=== PATIENT | female | born 1975 | race American Indian/Alaskan Native ===

== ENCOUNTER 2018-03-22 07:48 | Day surgery (SDC) | payer OTHER ==
[~2018-03-22] VITALS: Ht 154.9 cm; Wt 86.4 kg
[~2018-03-22 07:48] MED LIST: ALBU90OI61 INH; ASPI81CH PO; Advair Hfa 230-12 GM INH; Aldactone25 MG PO; Amlodipine Bes2.5 MG PO; Bactrim Ds Tab1 EACH PO; CEPH500 PO; Omeprazole20 M1 PO; SILD25T PO
== END 2018-03-22 14:20 | disposition home or self-care (01) ==
LOC: MHTC 07:48
DX: I27.20 Pulmonary hypertension, unspecified (principal); R07.9 Chest pain, unspecified; J45.909 Unspecified asthma, uncomplicated; Z87.891 Personal history of nicotine dependence; F12.90 Cannabis use, unspecified, uncomplicated; E66.9 Obesity, unspecified; I11.0 Hypertensive heart disease with heart failure; I50.810 Right heart failure, unspecified
CPT/HCPCS: 93456; 99152; C1769; C1894; J1644; J2250; J3010; J3480; J7030; Q9967

== ENCOUNTER 2019-11-06 19:44 | Observation (INO) | payer OTHER ==
[~2019-11-06] VITALS: Ht 154.9 cm; Wt 78.2 kg
[2019-11-06 20:55] LABS: BASOPHILS ABSOLUTE AUTO 0.07 K/mm3 (0.00-0.23); BASOPHILS PERCENT AUTO 1 % (0-2); EOSINOPHILS ABSOLUTE AUTO 0.63 K/mm3 (0.00-0.68); EOSINOPHILS PERCENT AUTO 10 % (0-6); Hematocrit 37.3 % (33.0-51.0); Hemoglobin 10.6 g/dL (11.5-16.0); IMMATURE GRAN ABSOLUTE AUTO 0.01 K/mm3 (0.00-0.10); IMMATURE GRAN PERCENT AUTO 0 % (0-1); LYMPHOCYTES ABSOLUTE AUTO 1.75 K/mm3 (0.84-5.20); LYMPHOCYTES PERCENT AUTO 28 % (21-46); MONOCYTES PERCENT AUTO 8 % (4-13); Mean Corpuscular HGB 19.1 pg (26.0-34.0); Mean Corpuscular HGB Conc 28.4 g/dL (31.5-36.5); Mean Corpuscular Volume 67 fL (80-100); Mean Platelet Volume 10.3 fL (9.1-12.4); NEUTROPHILS PERCENT AUTO 53 % (41-73); Platelet Count 285 K/mm3 (150-400); RDW Coefficient Variation 20.6 % (11.7-14.2); RDW Standard Deviation 47.3 fL (35.1-46.3); Red Blood Cell Count 5.55 M/mm3 (3.80-5.20); White Blood Cell Count 6.36 K/mm3 (4.00-11.30)
[2019-11-06 21:13] LABS: Base Excess Venous -4.5 mmol/L; PCO2 Venous 40.4 mmHg (38-42); PO2 Venous 143 mmHg (38-42); pH Blood Venous 7.33 (7.34-7.37)
[2019-11-06 21:13] LABS: Alanine Aminotransfer (ALT/SGP 28 U/L (12-78); Albumin, Blood 2.9 g/dL (3.4-5.0); Albumin/Globulin Ratio 0.6 (0.8-1.8); Alk Phos 182 U/L (50-136); Anion Gap 8 mmol/L (6-16); Aspartate Aminotrans (AST/SGOT 43 U/L (12-37); Bilirubin, Total 0.5 mg/dL (0.1-1.0); Blood Urea Nitrogen 10 mg/dL (8-24); Bun/Creatinine Ratio 11.1 (12.0-20.0); CO2, Blood 21 mmol/L (21-32); Calcium, Blood 8.2 mg/dL (8.5-10.1); Chloride, Blood 113 mmol/L (98-108); Globulin, Blood 4.7 g/dL (2.2-4.0); Glomerular Filtration Rate >60 (60-); Glucose, Blood 106 mg/dL (70-99); Potassium, Blood 3.6 mmol/L (3.5-5.5); Sodium, Blood 142 mmol/L (136-145); Total Protein, Blood 7.6 g/dL (6.4-8.2); Troponin I <0.015 ng/mL (0.000-0.040)
[2019-11-06 21:48] LABS: Percent Saturation 6.4 % (15.0-50.0)
--- NOTE | 2019-11-06 22:26 | NUR ---
ATTEMPTED TO CALL FOR REPORT; RN WAS BUSY. ED RN WILL CALL BACK
[2019-11-06] MEDS ORDERED: SILD50TA PO (23:12)
--- NOTE | 2019-11-07 02:10 | NUR ---
ASSUMED CARE OF PATIENT AT [facility] 2307 FROM ED RN SUMEET Augustine PATIENT ARRIVED TO UNIT VIA STRETCHER; TRANSFER VIA SLIDE SHEET AND MAX ASSIST FROM ED TO PCU STRETCHER. PATIENT ALERT AND ORIENTED X4; DIZZINESS W/ AMBULATION; BEDREST. PATIENT DENIES PAIN, NUMBNESS, TINGLING, DIZZINESS OR NAUSEA. ADMISSION COMPLETE. PIV S/L. PATIENT REPORTS SHE WAS UNABLE TO GET REFILL ON MEDICATION DUE TO NOT BEING ABLE TO GET APPOINTMENT DUE TO COVID. NSR ON TELE; OXYGEN SATURATION ABOVE 90% ON 3LPM VIA NC. PATIENT CURRENTLY RESTING IN BED; CALL LIGHT IN REACH; BED IN LOWEST POSISTION; BED ALARM ON; WILL CONTINUE TO MONITOR AND ASSESS UNTIL END OF SHIFT.
--- NOTE | 2019-11-07 06:00 | NUR ---
PATIENT SLEPT ABOUT FIVE HOURS LAST NIGHT. OXYGEN TITRATED DOWN TO 2LPM VIA NC. TROPONIN X2 NEGATIVE; VSS. WILL CONTINUE TO MONITOR AND ASSESS UNTIL END OF SHIFT.
[2019-11-07 07:14] LABS: Source, Urine Voided
[2019-11-07 07:19] LABS: Bilirubin, Urine Neg (Neg); Blood, Urine Neg (Neg); Glucose Qualitative, Urine Neg (Neg); Ketones, Urine Neg (Neg); Leukocyte Esterase, Urine 1+ (Neg); Nitrite, Urine Neg (Neg); Protein, Urine Neg (Neg); Specific Gravity, Urine 1.015 (1.003-1.022); Urobilinogen, Urine 3+ (Normal)
[2019-11-07 07:27] LABS: Appearance, Urine Hazy (Clear); Color, Urine Yellow (P-Yellow); Red Blood Cells, Urine 0-2 /hpf (0-2); Squamous Epithelial Cells Few /hpf (Few)
[2019-11-07 07:28] LABS: Amorphous Mod (0-Heavy); Bacteria Rare /hpf; Mucus Light (0-Heavy)
--- NOTE | 2019-11-07 08:57 | NUR ---
ECHO TAKING PLACE NOW
--- NOTE | 2019-11-07 09:52 | NUR ---
PT WAS UP TO C THIS AM WITHOUT DIFF, DENIES CP, DIZZINESS OR SOB WITH AMBULATION. PT WITH STEADY GAIT TRANSDERS BACK TO BED FROM [facility] [place]. PT A/O X4, ANSWERING QUESTIONS APPROPRIATELY IN FULL SENTENCES. VSS AND BP WELL CONTROLLED UPON MORNING VITALS ASSESSMENT. URINE HAS BEEN SENT TO LAB. ECHO HAS BEEN COMPLETED.
--- NOTE | 2019-11-07 14:26 | NUR ---
REPORT CALLED TO SHAYNA ON MEDICAL FLOOR. PT TO MEDICAL FLOOR VIA WHEELCHAIR. PT REMAINS ON 2L O2 VIA NASAL CANNULA. VSS, SHAYNA IS MADE AWARE OF VITALS AND THAT PT WAS JUST MEDICATED. PT ANSWERING QUESTIONS IN FULL SENTENCES, DENIES CP, DIZZINESS OR SOB. PT OTD c ALL BELONGINGS
--- NOTE | 2019-11-07 15:52 | NUR ---
PCU 7 TRANSFER TO 326. PT IS A/O X4, CALM/PLEASANT AFFECT. IND TO BED. SHE STATE NO DIZZINESS/LIGHTHEADEDNESS @ THIS TIME. STATE TIRED/FATIGUED. HRR w MURMUR, SHE STATES MURMUR PRESENT SINCE CHILDHOOD. TELE SR 60'S. LS CLEAR, SHE STATE NO SOB, BIOX 92% RA. ORIENTED TO & CALL SYSTEM, FALL PRECAUTIONS R/T SYNCOPE/DIZZINESS. BP 100/64--VSS.
--- NOTE | 2019-11-08 07:00 | NUR ---
ASSUMED CARE OF PT- BEDSIDE REPORT RECIEVED FROM NIGHT ELIO LAWSON. PER REPORT PT HAS IMPROVED GREATLY SINCE ADMIT AND MAY BE DISCHARGING TODAY. PT ALERT AND ORIENTED AND PARTICIPATED IN REPORT.
[2019-11-08] MEDS ORDERED: Revatio20 MG PO (10:55)
[2019-11-08] MEDS ORDERED: FERSU300 PO (10:56)
--- NOTE | 2019-11-08 11:00 | NUR ---
DR HILTON ORDERED A HOLD ON PT DISCHARGE UNTIL CHEST CT TO R/O PE HAS BEEN DONE AND THE RESULTS ARE READ.
--- NOTE | 2019-11-08 18:38 | NUR ---
DISCHARGE NOTE- PT WAS GIVEN VERBAL AND WRITTEN DISCHARGE INSTRUCTIONS AND ACKNOWLEDGED UNDERSTANDING OF THEM. NO FURTHER QUESTIONS AT THE TIME OF DISCHARGE. PT ESCORTED OUT VIA WC BY THE ABSTRACT SEARCHER. HER SISTER PICKED HER UP.
--- NOTE | 2019-11-08 18:58 | NUR ---
CALLED SCRIPT FOR SILDE[facility] IN TO [facility] PER PT REQUEST
== END 2019-11-08 15:20 | disposition home or self-care (01) ==
LOC: ER 19:44 → PCU 19:45 → MEDS 19:45 → PCU 19:45 → MEDS 11-07 14:45
PROVIDERS: Emergency Medicine; ADMIT Internal Medicine
DX: R55 Syncope and collapse (principal); D50.9 Iron deficiency anemia, unspecified; I27.20 Pulmonary hypertension, unspecified; R79.1 Abnormal coagulation profile; Z88.0 Allergy status to penicillin
CPT/HCPCS: 36415; 71046; 71260; 80053; 81001; 82803; 83540; 83550; 83690; 83880; 84443; 84484; 85025; 85379; 93005; 93010; 93306; 96374; 99285-25; A9270-GY; J1650; J2405; Q9967

== ENCOUNTER 2021-06-07 15:56 | Emergency (ER) | payer OTHER ==
[~2021-06-07] VITALS: Ht 152.4 cm; Wt 74.8 kg
[~2021-06-07 15:56] MED LIST changes: +FERSU300 PO; +Revatio20 MG PO; +SILD50TA PO
[2021-06-07 17:02] LABS: BASOPHILS ABSOLUTE AUTO 0.06 K/mm3 (0.00-0.23); BASOPHILS PERCENT AUTO 1 % (0-2); EOSINOPHILS ABSOLUTE AUTO 0.51 K/mm3 (0.00-0.68); EOSINOPHILS PERCENT AUTO 9 % (0-6); Hematocrit 24.7 % (33.0-51.0); Hemoglobin 7.1 g/dL (11.5-16.0); IMMATURE GRAN PERCENT AUTO 0 % (0-1); LYMPHOCYTES ABSOLUTE AUTO 2.18 K/mm3 (0.84-5.20); LYMPHOCYTES PERCENT AUTO 37 % (21-46); MONOCYTES PERCENT AUTO 10 % (4-13); Mean Corpuscular HGB 19.3 pg (26.0-34.0); Mean Corpuscular HGB Conc 28.7 g/dL (31.5-36.5); Mean Corpuscular Volume 67 fL (80-100); Mean Platelet Volume 9.4 fL (9.1-12.4); NEUTROPHILS ABSOLUTE AUTO 2.59 K/mm3 (1.96-9.15); NEUTROPHILS PERCENT AUTO 44 % (41-73); Platelet Count 308 K/mm3 (150-400); RDW Coefficient Variation 15.9 % (11.7-14.2); RDW Standard Deviation 38.6 fL (35.1-46.3); Red Blood Cell Count 3.67 M/mm3 (3.80-5.20); White Blood Cell Count 5.94 K/mm3 (4.00-11.30)
[2021-06-07 17:21] LABS: Alanine Aminotransfer (ALT/SGP 23 U/L (12-78); Albumin, Blood 2.6 g/dL (3.4-5.0); Albumin/Globulin Ratio 0.5 (0.8-1.8); Alk Phos 208 U/L (50-136); Anion Gap 6 mmol/L (6-16); Aspartate Aminotrans (AST/SGOT 36 U/L (12-37); Bilirubin, Total 0.5 mg/dL (0.1-1.0); Blood Urea Nitrogen 8 mg/dL (8-24); Bun/Creatinine Ratio 10.5 (12.0-20.0); CO2, Blood 24 mmol/L (21-32); Calcium, Blood 8.1 mg/dL (8.5-10.1); Chloride, Blood 111 mmol/L (98-108); Creatinine, Blood 0.76 mg/dL (0.40-1.00); Globulin, Blood 4.8 g/dL (2.2-4.0); Glomerular Filtration Rate >60 (60-); Glucose, Blood 70 mg/dL (70-99); Potassium, Blood 3.4 mmol/L (3.5-5.5); Sodium, Blood 141 mmol/L (136-145); Total Protein, Blood 7.4 g/dL (6.4-8.2)
[2021-06-07] MEDS ORDERED: FLUT1DIS5 INH (18:39)
[2021-06-07] MEDS ORDERED: ALBU90OI INH (18:40)
[2021-06-07] MEDS ORDERED: FERROUS GLUCON324 M2 PO (22:35)
== END 2021-06-07 22:58 | disposition home or self-care (01) ==
LOC: ER 15:56
PROVIDERS: Emergency Medicine
DX: R04.0 Epistaxis (principal); D64.9 Anemia, unspecified; Z88.0 Allergy status to penicillin; Z91.011 Allergy to milk products
CPT/HCPCS: 36415; 36430; 80053; 85025; 86850; 86900; 86901; 86923; 99283-25; J7030; P9016

== ENCOUNTER 2021-07-15 15:30 | Emergency (ER) | payer OTHER ==
[~2021-07-15] VITALS: Ht 154.9 cm; Wt 74.8 kg
[~2021-07-15 15:30] MED LIST changes: +ALBU90OI INH; +FERROUS GLUCON324 M2 PO; +FLUT1DIS5 INH
[2021-07-15 17:49] LABS: BASOPHILS ABSOLUTE AUTO 0.05 K/mm3 (0.00-0.23); BASOPHILS PERCENT AUTO 1 % (0-2); EOSINOPHILS ABSOLUTE AUTO 0.69 K/mm3 (0.00-0.68); EOSINOPHILS PERCENT AUTO 12 % (0-6); Hematocrit 20.9 % (33.0-51.0); IMMATURE GRAN ABSOLUTE AUTO 0.01 K/mm3 (0.00-0.10); IMMATURE GRAN PERCENT AUTO 0 % (0-1); LYMPHOCYTES ABSOLUTE AUTO 1.86 K/mm3 (0.84-5.20); LYMPHOCYTES PERCENT AUTO 33 % (21-46); MONOCYTES ABSOLUTE AUTO 0.56 K/mm3 (0.16-1.47); MONOCYTES PERCENT AUTO 10 % (4-13); Mean Corpuscular HGB 17.6 pg (26.0-34.0); Mean Corpuscular HGB Conc 27.3 g/dL (31.5-36.5); Mean Corpuscular Volume 65 fL (80-100); Mean Platelet Volume 10.3 fL (9.1-12.4); NEUTROPHILS ABSOLUTE AUTO 2.52 K/mm3 (1.96-9.15); NEUTROPHILS PERCENT AUTO 44 % (41-73); Platelet Count 282 K/mm3 (150-400); RDW Coefficient Variation 17.5 % (11.7-14.2); Red Blood Cell Count 3.24 M/mm3 (3.80-5.20); White Blood Cell Count 5.69 K/mm3 (4.00-11.30)
[2021-07-15 17:54] LABS: Hemoglobin 5.7 g/dL (11.5-16.0)
[2021-07-15 17:59] LABS: Alanine Aminotransfer (ALT/SGP 21 U/L (12-78); Albumin, Blood 2.9 g/dL (3.4-5.0); Albumin/Globulin Ratio 0.7 (0.8-1.8); Alk Phos 155 U/L (50-136); Anion Gap 6 mmol/L (6-16); Aspartate Aminotrans (AST/SGOT 31 U/L (12-37); Bilirubin, Total 0.4 mg/dL (0.1-1.0); Blood Urea Nitrogen 8 mg/dL (8-24); Bun/Creatinine Ratio 10.2 (12.0-20.0); CO2, Blood 24 mmol/L (21-32); Calcium, Blood 8.1 mg/dL (8.5-10.1); Chloride, Blood 109 mmol/L (98-108); Creatinine, Blood 0.78 mg/dL (0.40-1.00); Globulin, Blood 4.3 g/dL (2.2-4.0); Glomerular Filtration Rate >60 (60-); Glucose, Blood 114 mg/dL (70-99); Potassium, Blood 3.6 mmol/L (3.5-5.5); Sodium, Blood 139 mmol/L (136-145); Total Protein, Blood 7.2 g/dL (6.4-8.2)
[2021-07-15 23:13] LABS: Hematocrit 23.6 % (33.0-51.0); Hemoglobin 7.2 g/dL (11.5-16.0)
[2021-07-15] MEDS ORDERED: FERSU300 PO (23:33)
== END 2021-07-15 23:43 | disposition home or self-care (01) ==
LOC: ER 15:30
PROVIDERS: Physician Assistant
DX: D64.9 Anemia, unspecified (principal)
CPT/HCPCS: 36415; 36430; 80053; 85014; 85018; 85025; 86850; 86900; 86901; 86923; 99283-25; J7030; P9016

== ENCOUNTER 2021-09-22 16:05 | Emergency (ER) | payer OTHER ==
[~2021-09-22] VITALS: Ht 152.4 cm; Wt 73.9 kg
[2021-09-22 16:48] LABS: BASOPHILS ABSOLUTE AUTO 0.05 K/mm3 (0.00-0.23); BASOPHILS PERCENT AUTO 1 % (0-2); EOSINOPHILS ABSOLUTE AUTO 0.35 K/mm3 (0.00-0.68); EOSINOPHILS PERCENT AUTO 4 % (0-6); Hematocrit 30.9 % (33.0-51.0); Hemoglobin 8.9 g/dL (11.5-16.0); IMMATURE GRAN ABSOLUTE AUTO 0.01 K/mm3 (0.00-0.10); IMMATURE GRAN PERCENT AUTO 0 % (0-1); LYMPHOCYTES ABSOLUTE AUTO 1.59 K/mm3 (0.84-5.20); LYMPHOCYTES PERCENT AUTO 18 % (21-46); MONOCYTES ABSOLUTE AUTO 0.84 K/mm3 (0.16-1.47); MONOCYTES PERCENT AUTO 10 % (4-13); Mean Corpuscular HGB 18.7 pg (26.0-34.0); Mean Corpuscular HGB Conc 28.8 g/dL (31.5-36.5); Mean Corpuscular Volume 65 fL (80-100); Mean Platelet Volume 9.3 fL (9.1-12.4); NEUTROPHILS ABSOLUTE AUTO 5.79 K/mm3 (1.96-9.15); NEUTROPHILS PERCENT AUTO 67 % (41-73); Platelet Count 231 K/mm3 (150-400); RDW Coefficient Variation 21.3 % (11.7-14.2); RDW Standard Deviation 48.3 fL (35.1-46.3); Red Blood Cell Count 4.76 M/mm3 (3.80-5.20); White Blood Cell Count 8.63 K/mm3 (4.00-11.30)
[2021-09-22 17:04] LABS: Alanine Aminotransfer (ALT/SGP 24 U/L (12-78); Albumin, Blood 2.9 g/dL (3.4-5.0); Albumin/Globulin Ratio 0.5 (0.8-1.8); Alk Phos 251 U/L (50-136); Anion Gap 4 mmol/L (6-16); Aspartate Aminotrans (AST/SGOT 30 U/L (12-37); Bilirubin, Total 0.6 mg/dL (0.1-1.0); Blood Urea Nitrogen 6 mg/dL (8-24); Bun/Creatinine Ratio 9.2 (12.0-20.0); CO2, Blood 24 mmol/L (21-32); Calcium, Blood 8.8 mg/dL (8.5-10.1); Chloride, Blood 110 mmol/L (98-108); Creatinine, Blood 0.65 mg/dL (0.40-1.00); Globulin, Blood 5.4 g/dL (2.2-4.0); Glomerular Filtration Rate >60 (60-); Glucose, Blood 111 mg/dL (70-99); Potassium, Blood 2.8 mmol/L (3.5-5.5); Sodium, Blood 138 mmol/L (136-145); Total Protein, Blood 8.3 g/dL (6.4-8.2)
[2021-09-22] MEDS ORDERED: AZIT500 PO (22:35)
[2021-09-22] MEDS ORDERED: CEFD300 PO (22:35)
== END 2021-09-22 22:55 | disposition home or self-care (01) ==
LOC: ER 16:05
PROVIDERS: Physician Assistant
DX: I27.20 Pulmonary hypertension, unspecified (principal); Z88.0 Allergy status to penicillin; Z91.040 Latex allergy status
CPT/HCPCS: 36415; 71046; 71260; 80053; 83690; 85025; 85379; 93005; 93010; 96374; 99285-25; A9270; J0696; Q9967

== ENCOUNTER 2023-06-21 16:46 | Observation (INO) | payer OTHER ==
[~2023-06-21 16:46] MED LIST changes: +AZIT500 PO; +CEFD300 PO; +ONDA4ODT MM; +Percocet 5-3251 EACH PO; +SULTRIDS PO
[2023-06-21 19:00] LABS: Albumin, Blood 2.9 g/dL (3.4-5.0); Albumin/Globulin Ratio 0.5 (0.8-1.8); Bilirubin, Total 0.7 mg/dL (0.1-1.0); Bun/Creatinine Ratio 8.8 (12.0-20.0); Calcium, Blood 8.4 mg/dL (8.5-10.1); Creatinine, Blood 0.79 mg/dL (0.40-1.00); Globulin, Blood 5.8 g/dL (2.2-4.0); Potassium, Blood 2.7 mmol/L (3.5-5.5); Total Protein, Blood 8.7 g/dL (6.4-8.2)
[2023-06-21 19:26] LABS: BASOPHILS ABSOLUTE AUTO 0.06 K/mm3 (0.00-0.23); BASOPHILS PERCENT AUTO 1 % (0-2); EOSINOPHILS ABSOLUTE AUTO 0.26 K/mm3 (0.00-0.68); EOSINOPHILS PERCENT AUTO 4 % (0-6); Hematocrit 32.8 % (33.0-51.0); Hemoglobin 9.5 g/dL (11.5-16.0); IMMATURE GRAN ABSOLUTE AUTO 0.01 K/mm3 (0.00-0.10); IMMATURE GRAN PERCENT AUTO 0 % (0-1); LYMPHOCYTES ABSOLUTE AUTO 1.32 K/mm3 (0.84-5.20); LYMPHOCYTES PERCENT AUTO 19 % (21-46); MONOCYTES ABSOLUTE AUTO 0.48 K/mm3 (0.16-1.47); MONOCYTES PERCENT AUTO 7 % (4-13); Mean Corpuscular HGB 19.5 pg (26.0-34.0); Mean Corpuscular Volume 68 fL (80-100); Mean Platelet Volume 9.4 fL (9.1-12.4); NEUTROPHILS ABSOLUTE AUTO 4.68 K/mm3 (1.96-9.15); NEUTROPHILS PERCENT AUTO 69 % (41-73); Platelet Count 207 K/mm3 (150-400); RDW Coefficient Variation 18.7 % (11.7-14.2); Red Blood Cell Count 4.86 M/mm3 (3.80-5.20); White Blood Cell Count 6.81 K/mm3 (4.00-11.30)
[2023-06-21 20:39] LABS: C-REACTIVE PROTEIN, EXT RANGE 1.03 mg/dL (0.000-0.300)
[2023-06-21 21:57] VITALS: BP 131/81
[2023-06-21 21:58] LABS: Influenza A, PCR NEGATIVE (NEGATIVE); Influenza B, PCR NEGATIVE (NEGATIVE); Resp Syncytial Virus, PCR NEGATIVE (NEGATIVE); SARS-Cov-2 (COVID-19) PCR, MMC NEGATIVE (NEGATIVE)
--- NOTE | 2023-06-21 23:29 | NUR ---
Patient came in from ED per stretcher, A&O x4, with PIV on left arm, with ongoing IV Potassium infusing well. Able to transfer to bed x 1 assist. VS taken and recorded, hooked on tele. Admission assessment done; noted chicken pox scabs all over patient's body. Will continue to monitor.
[2023-06-22 03:43] VITALS: BP 108/64
--- NOTE | 2023-06-22 04:14 | NUR ---
PATIENT IS ALERT AND ORIENTED X4; WITH PIV ON LEFT AC WITH ONGOING IV OF NSS 1L @ 100 ML/HR; ON TELE, SINUS RHYTHM/73; NO EDEMA NOTED; ON ROOM AIR; CHICKEN POX SCABS ALL OVER HER BODY NOTED.
[2023-06-22 04:58] LABS: Calcium, Blood 8.1 mg/dL (8.5-10.1); Creatinine, Blood 0.75 mg/dL (0.40-1.00); Potassium, Blood 3.7 mmol/L (3.5-5.5)
[2023-06-22 08:08] VITALS: BP 105/69
--- NOTE | 2023-06-22 12:13 | NUR ---
NOTIFIED DR. ROSALES OF D DIMER RESULTS OF 1.36 NO NEW ORDERS
[2023-06-22 12:21] LABS: Percent Saturation 5.1 % (15.0-50.0)
[2023-06-22] MEDS ORDERED: FERSU300 PO (15:42)
--- NOTE | 2023-06-22 18:10 | NUR ---
DISCHARGE NOTE: DISCHARGE DISCUSSED WITH PATIENT AND HER BROTHER AT BED SIDE. NO QUESTIONS OR CONCERNS. IV AND TELEMETRY D/C'D. BELONGINGS COLLECTED AND PATIENT GOT DRESSED. PATIENT WAS WHEELED OUT VIA WHEELCHAIR TO [facility]. NO SIGNS OR SYMPTOMS OF DISTRESS DURING DISCHARGE.
== END 2023-06-22 17:43 | disposition home or self-care (01) ==
LOC: ER 16:46 → MEDS 20:18
PROVIDERS: Nurse Practitioner Acute Care; Physician Assistant; Student in an Organized Health Care Education/Training Program; ADMIT Internal Medicine
DX: R07.89 Other chest pain (principal); E87.6 Hypokalemia; J45.909 Unspecified asthma, uncomplicated; I27.20 Pulmonary hypertension, unspecified; Z20.822 Contact with and (suspected) exposure to COVID-19; D50.9 Iron deficiency anemia, unspecified; K74.60 Unspecified cirrhosis of liver; R42 Dizziness and giddiness; R55 Syncope and collapse
CPT/HCPCS: 0241U; 36415; 71046; 71260; 80048; 80053; 82728; 83540; 83550; 84484; 85025; 85379; 85651; 86140; 93005; 93010; 93306; 94761; 96361; 96365; 96366; 96372; 96375; 99285-25; A9270; G0378; J1650; J2405; J3480; J7030; J7050; Q9967